=== PATIENT | female | born 1970 | race Hispanic/Latino ===

== ENCOUNTER 2018-03-16 10:14 | Emergency (ER) | payer OTHER ==
[2018-03-16] MEDS ORDERED: Ibuprofen 800 MG TAB ONE (11:16)
--- NOTE | 2018-03-16 11:32 | RAD ---
3 VIEW RIGHT SHOULDER: Date: 03/16/18 INDICATION: Fall with pain. FINDINGS: There is a surgical anchor of the humeral head. No fracture or dislocation. There is mild osteoarthri tis of the right AC joint. IMPRESSION: No acute fracture of the postoperative right shoulder. POS: [facility]
--- NOTE | 2018-03-16 11:33 | RAD ---
3 VIEW RIGHT WRIST: Date: 03/16/18 INDICATION: Injury, pain. FINDINGS: There is a minimally displaced distal radial fracture which does approximate the articular surface, a lthough there is no significant cortical step-off. There is a mildly comminuted ulnar styloid avulsio n injury. IMPRESSION: Distal radial and ulnar fractures. Telephone call findings placed to the ER physician, Francia Corado, at the time of dictation, 1118 hours on 03/16/18. CODE CR. POS: [facility]
== END 2018-03-16 11:37 | disposition home or self-care (01) ==
LOC: SCSER 10:14
DX: S52.511A Displaced fracture of right radial styloid process, initial encounter for closed fracture (principal); S52.501A Unspecified fracture of the lower end of right radius, initial encounter for closed fracture; I10 Essential (primary) hypertension; E66.9 Obesity, unspecified; F41.9 Anxiety disorder, unspecified; Z79.899 Other long term (current) drug therapy; Z79.82 Long term (current) use of aspirin; W01.0XXA Fall on same level from slipping, tripping and stumbling without subsequent striking against object, initial encounter
CPT/HCPCS: 29125

== ENCOUNTER 2018-08-13 13:33 | Emergency (ER) | payer OTHER ==
--- NOTE | 2018-08-13 14:09 | RAD ---
LEFT FOOT RADIOGRAPHS THREE VIEWS: Date: 08-13-18 Provided Clinical History: Fifth toe pain status post injury. FINDINGS: There is no evidence for fracture or other acute osseous abnormality. If there is persistent clinical concern, conservative management and follow up imaging are advised. IMPRESSION: As above. POS: [facility]
== END 2018-08-13 14:26 | disposition home or self-care (01) ==
LOC: SCSER 13:33
DX: M79.675 Pain in left toe(s) (principal); E66.9 Obesity, unspecified; I10 Essential (primary) hypertension; M06.9 Rheumatoid arthritis, unspecified; F41.9 Anxiety disorder, unspecified; Z79.891 Long term (current) use of opiate analgesic; Z79.899 Other long term (current) drug therapy; Z79.82 Long term (current) use of aspirin

== ENCOUNTER 2018-10-17 12:31 | Emergency (ER) | payer OTHER ==
[2018-10-17] MEDS ORDERED: Promethazine HCl 25 MG/ML VIAL ONE (13:21)
--- NOTE | 2018-10-17 13:29 | RAD ---
XR Chest 1 View Portable HISTORY: Syncope COMPARISON: 09/25/2012 FINDINGS: The heart size is normal. The lungs are well expanded without focal areas of consolidation, pneumothorax or pleural effusions. IMPRESSION: No radiographic evidence of acute cardiopulmonary process.
[2018-10-17 13:30] LABS: #Basophils 0.1 thou/uL (0.0-0.2); #Eosinphils 0.1 thou/uL (0.0-0.7); #Monocytes 0.4 thou/uL (0.11-0.59); #Neutrophils 6.3 thou/uL (1.40-6.50); %Basophils 0.8 % (0.0-1.0); %Eosinophils 0.7 % (0.0-10.0); %Lymphocytes 22.1 % (21.0-51.0); %Monocytes 4.5 % (0.0-10.0); %Neutrophils 71.9 % (42.0-75.0); Hemoglobin 13.6 g/dL (12.0-16.0); Mean Corpuscular HGB CONC 32.6 g/dL (32.0-36.0); Mean Corpuscular Hemoglobin 30.5 pg (27.0-31.0); Mean Corpuscular Volume 93.4 fL (78.0-98.0); Mean Platelet Volume 7.1 fL (7.4-10.4); Platelet Count 223 thou/uL (130-400); RBC Distribution Width 12.4 % (11.5-14.5); Red Blood Cell (RBC) Count 4.46 mill/uL (4.20-5.40); White Blood Cell (WBC) Count 8.8 thou/uL (4.8-10.8)
[2018-10-17 13:35] LABS: BHCG - Serum Negative (NEGATIVE); Pregs Control Background? CLEAR/WHITE (CLR/WHITE); Pregs Control Bar Appear? YES (CONTROL BAR)
[2018-10-17 13:50] LABS: Bilirubin Small (Negative); Blood, Urine Negative (Negative); Clarity CLOUDY (Clear); Glucose, Urine (Dipstick) Negative (Negative); Leukocyte Trace (Negative); Nitrite Negative (Negative); Protein, Urine (Dipstick) 100 mg/dL (Neg-Trace); Specific Gravity, Urine 1.026 (1.002-1.036)
[2018-10-17 13:52] LABS: Bacteria/HPF None Seen HPF (None Seen)
[2018-10-17 13:53] LABS: Pathc Cast-AUWi Flag 38.49 (0-2.49); Yeast-AUWi Flag 26.6 (0-25.0)
[2018-10-17 13:53] LABS: ALT (SGPT) 9 U/L (8-55); AST (SGOT) 20 U/L (5-34); Alkaline Phosphatase 65 U/L (40-150); Anion Gap 13 mmol/L (10-20); BUN (Urea Nitrogen) 23 mg/dL (7.0-18.7); Bilirubin, Total 0.6 mg/dL (0.2-1.2); CK (CPK) 131 U/L (29-168); Calc. Creatinine Clearance 0 mL/min (70-130); Calcium 9.2 mg/dL (7.8-10.44); Carbon Dioxide 26 mmol/L (22-29); Chloride 105 mmol/L (98-107); Estimated GFR-MDRD 38; Globulin 3.4 g/dL (2.4-3.5); Glucose 98 mg/dL (70-105); Potassium 3.8 mmol/L (3.5-5.1); Protein, Total 7.4 g/dL (6.0-8.3); Sodium 140 mmol/L (136-145)
[2018-10-17 13:59] LABS: RBC/HPF 0-3 HPF (0-3)
[2018-10-17 14:00] LABS: Hyaline Casts/LPF >50 HYALINE CAST LPF (0-3 Hyaline)
[2018-10-17 14:01] LABS: Other Casts/LPF 4-6 COARSE GRAN LPF (0-3 Hyaline); Yeast-All Forms None Seen HPF (None Seen)
[2018-10-17 14:02] LABS: Amphetamine Not Detected (NotDetected); Barbiturates Screen Not Detected (NotDetected); Benzodiazepine Screen Not Detected (NotDetected); Cocaine Metabolite Screen Not Detected (NotDetected); Medtox Control Line Valid? VALID (VALID); Medtox Reader # READER 4; Methadone Not Detected (NotDetected); Methamphetamine Not Detected (NotDetected); Opiate Screen Not Detected (NotDetected); Oxycodone Screen Not Detected (NotDetected); Phencyclidine (PCP) Not Detected (NotDetected); THC/Cannabinoid Screen Detected (NotDetected); Tricyclic Screen Detected (NotDetected)
--- NOTE | 2018-10-18 14:37 | EKG ---
Test Reason : SYNCOPE Blood Pressure : / mmHG Vent. Rate : 065 BPM Atrial Rate : 065 BPM P-R Int : 180 ms QRS Dur : 088 ms QT Int : 412 ms P-R-T Axes : 028 014 030 degrees QTc Int : 428 ms Normal sinus rhythm Normal ECG Confirmed by CARLOS BRYANT D.O. ([id number]), society editor MCKAY BENITEZ ([id number]) on 10/18/2018 2:37:11 PM Referred By: Confirmed By:CARLOS BRYANT D.O.
== END 2018-10-17 15:01 | disposition home or self-care (01) ==
LOC: ERS 12:31
DX: E86.0 Dehydration (principal); I10 Essential (primary) hypertension; E66.9 Obesity, unspecified; M19.90 Unspecified osteoarthritis, unspecified site; G47.30 Sleep apnea, unspecified; F41.9 Anxiety disorder, unspecified; Z79.899 Other long term (current) drug therapy
CPT/HCPCS: 36415; 71045; 80053; 80306; 81003; 81015; 82550; 84484; 84703; 85025; 93005; 96361; 96374; J2550

== ENCOUNTER 2018-11-11 12:20 | Outpatient (CLI) | payer OTHER ==
--- NOTE | 2018-11-11 12:55 | RAD ---
RIGHT SHOULDER RADIOGRAPHS 3 VIEWS: DATE: 11/11/2018. PROVIDED CLINICAL HISTORY: Shoulder pain. FINDINGS: Comparison 03/16/2018. No evidence for a fracture or other acute osseous abnormality. Postoperative changes of prior rotato r cuff repair demonstrated. The subacromial space appears preserved. Glenohumeral relationship appe ars normal. The acromioclavicular degenerative changes are again seen. IMPRESSION: Acromioclavicular osteoarthrosis. POS: [facility]
== END 2018-11-11 12:21 | disposition home or self-care (01) ==
LOC: BICRAD 12:20
PROVIDERS: ATTEND Family Medicine
DX: M75.101 Unspecified rotator cuff tear or rupture of right shoulder, not specified as traumatic (principal); M19.011 Primary osteoarthritis, right shoulder

== ENCOUNTER 2018-12-09 12:52 | Outpatient (CLI) | payer OTHER ==
--- NOTE | 2018-12-09 14:06 | MRI ---
MR of the right shoulder without contrast INDICATION: Right shoulder pain. History of fall TECHNIQUE: Sagittal T1, axial and coronal PD fat sat, sagittal and coronal T2 fat sat images were obt ained of the right shoulder. COMPARISON: MR the right shoulder dated September 26, 2012 FINDINGS: Motion artifact limits image detail. Rotator cuff: There is a recurrent full-thickness tear of the supraspinatus with retraction of the te ndon to the level of the superior humeral head. No muscular atrophy is grossly evident. There is a moderate grade intrasubstance tear of the cranial to mid subscapularis with intratendinous subluxatio n of the proximal long head of the biceps tendon. Glenohumeral joint: Articular cartilage is intact. Glenoid labrum: Intact Biceps tendon and biceps anchor: The biceps tendon is subluxed within the intratendinous delamination of the proximal and mid subscapularis tear. There is partial thickness split tear of the proximal long head of the biceps tendon . There is no overt evidence of tear extension biceps anchor. Acromion clavicular joint: There is moderate AC joint osteoarthrosis. There is postsurgical change of a prior acromioplasty and distal clavicle excision Subacromial subdeltoid space: There is moderate fluid in the subcutaneous deltoid subacromial bursa. Axillary region: No lymphadenopathy. Surrounding shoulder musculature: Normal. No evidence of atrophy or strain. IMPRESSION: 1. Recurrent full-thickness tear of the supraspinatus with retraction to the superior humeral head. 2. Moderate grade intrasubstance tear of the cranial to mid subscapularis with intratendinous subluxa tion of the long head of the biceps tendon. There is also a partial-thickness split tear of the proximal long biceps tendon. 3. Postsurgical change of a prior rotator cuff repair, acromioplasty and distal
== END 2018-12-09 12:53 | disposition home or self-care (01) ==
LOC: MRI 12:52
PROVIDERS: ATTEND Family Medicine
DX: M75.101 Unspecified rotator cuff tear or rupture of right shoulder, not specified as traumatic (principal); M75.121 Complete rotator cuff tear or rupture of right shoulder, not specified as traumatic; S46.111A Strain of muscle, fascia and tendon of long head of biceps, right arm, initial encounter; S43.081A Other subluxation of right shoulder joint, initial encounter; S46.811A Strain of other muscles, fascia and tendons at shoulder and upper arm level, right arm, initial encounter; Z98.890 Other specified postprocedural states

== ENCOUNTER 2019-03-09 09:38 | Outpatient (CLI) | payer OTHER ==
[2019-03-09 11:08] LABS: #Basophils 0.1 thou/uL (0.0-0.2); #Eosinphils 0.2 thou/uL (0.0-0.7); #Lymphocytes 2.9 thou/uL (1.20-3.40); #Monocytes 0.4 thou/uL (0.11-0.59); #Neutrophils 3.3 thou/uL (1.40-6.50); %Basophils 0.7 % (0.0-1.0); %Lymphocytes 41.7 % (21.0-51.0); %Monocytes 6.3 % (0.0-10.0); %Neutrophils 48.3 % (42.0-75.0); Hemoglobin 14.1 g/dL (12.0-16.0); Mean Corpuscular HGB CONC 32.5 g/dL (32.0-36.0); Mean Corpuscular Hemoglobin 29.6 pg (27.0-31.0); Mean Corpuscular Volume 90.9 fL (78.0-98.0); Mean Platelet Volume 6.7 fL (7.4-10.4); Platelet Count 240 thou/uL (130-400); Red Blood Cell (RBC) Count 4.76 mill/uL (4.20-5.40); White Blood Cell (WBC) Count 6.8 thou/uL (4.8-10.8)
[2019-03-09 11:15] LABS: Bacteria/HPF None Seen HPF (None Seen); Bilirubin Negative (Negative); Blood, Urine Negative (Negative); Clarity Clear (Clear); Glucose, Urine (Dipstick) Normal (Negative); Leukocyte Negative Leu/uL (Negative); Nitrite Negative (Negative); Protein, Urine (Dipstick) 10 mg/dL (Neg-Trace); RBC/HPF 0-3 HPF (0-3); Squamous Epithelial 0-3 HPF (0-3)
== END 2019-03-09 09:39 | disposition home or self-care (01) ==
LOC: LABBT 09:38
PROVIDERS: ATTEND Orthopaedic Surgery
DX: Z01.818 Encounter for other preprocedural examination (principal); S46.011A Strain of muscle(s) and tendon(s) of the rotator cuff of right shoulder, initial encounter; S46.211A Strain of muscle, fascia and tendon of other parts of biceps, right arm, initial encounter
CPT/HCPCS: 81001; 85025; 93005; 93010

== ENCOUNTER 2019-03-11 06:00 | Day surgery (SDC) | payer OTHER ==
[2019-03-09 09:56] VITALS: BMI 34.4
--- NOTE | 2019-03-10 10:01 | HP ---
HISTORY OF PRESENT ILLNESS: The patient is a 49-year-old right-hand dominant female, who underwent an open rotator cuff repair by me in 2012 with good results. Approximately one year ago, the patient fell on an outstretched hand and has had persistent pain since that time. She has pain with certain motions and also interferes with sleep. She has had persistent problems despite rest and anti- inflammatory medications. PAST MEDICAL HISTORY: As noted above. The patient also has history of rheumatoid arthritis. She has chronic back and neck problems, had been followed by Dr. Hillman with periodic injections. She has history of polycystic kidney disease, hypertension, anxiety, and migraine headaches. CURRENT MEDICATIONS: Include; 1. Flexeril. 2. Tramadol. 3. Voltaren gel. 4. Lidocaine patches. 5. Etodolac. 6. Toprol. ALLERGIES: SHE IS ALLERGIC TO MORPHINE AND CODEINE. FAMILY HISTORY: Otherwise unremarkable. SOCIAL HISTORY: Otherwise unremarkable. REVIEW OF SYSTEMS: Otherwise unremarkable. PHYSICAL EXAMINATION: GENERAL: Reveals a healthy, heavy-set female. HEENT: Unremarkable. NECK: Supple. CHEST: Clear. HEART: Regular rate and rhythm. ABDOMEN: Soft and nontender. PELVIC: Deferred. RECTAL: Deferred. BREASTS: Deferred. EXTREMITIES: Pertinent findings with the right shoulder. There is no definite atrophy. She has a healed anterolateral incision. She has 170 degrees of forward flexion. There is weakness of abduction and external rotation. There is good internal rotation strength. There is tenderness in the subacromial space. There is no instability. Neurovascular exam is intact. There is positive impingement sign. DIAGNOSTIC STUDIES: X-rays of the shoulder revealed degenerative arthritis of the AC joint and a suture anchor from previous rotator cuff repair. MRI scan of the right shoulder in December of this year reveals a recurrent full-thickness tear of the supraspinatus tendon with retraction of the superior humeral head and moderate intrasubstance tear of the subscapularis with subluxation of the long head of the biceps. IMPRESSION: Recurrent rotator cuff tear, right shoulder and subluxation of biceps tendon. PLAN: Open acromioplasty and rotator cuff repair with biceps tenodesis. The nature of the surgery, length of recovery, potential complications such as infection, loss of motion, incomplete relief, persistent weakness, recurrent tear, inability to repair the tear, and need for additional treatment and repeat surgery have been discussed in detail. Job ID: [id number] [facility]
[2019-03-11] MEDS ORDERED: Midazolam HCl 2 mg/2 ml Vial ONE ×3 (06:40→10:57)
[2019-03-11] MEDS ORDERED: Fentanyl 100 MCG/2 ML VIAL ONE ×6 (06:41→10:59)
[2019-03-11] MEDS ORDERED: Scopolamine 1.5 mg/72 hour Patch ONE (07:05)
[2019-03-11] MEDS ORDERED: Ropivacaine 0.2% 550 ML 550 ML NERVE BLCK SCH (07:21)
[2019-03-11] MEDS ORDERED: Promethazine HCl 25 MG/ML VIAL IM PRN (07:21)
[2019-03-11] MEDS ORDERED: Ondansetron PF 4 MG/2 ML Vial IVP PRN (07:21)
[2019-03-11] MEDS ORDERED: traMADol HCl 50 MG TAB PO PRN ×2 (07:21)
[2019-03-11] MEDS ORDERED: Zolpidem Tartrate 5 MG TAB PO PRN (07:21)
[2019-03-11] MEDS ORDERED: Ketorolac Tromethamine 30 MG/ML VIAL IVP PRN (07:21)
[2019-03-11] MEDS ORDERED: HYDROcodone/Acetaminophen 5/325 mg Tablet PO PRN ×2 (07:21)
[2019-03-11] MEDS ORDERED: ePHEDrine/0.9% NaCl/PF SYRINGE 50 mg/10 ml ONE (08:42)
[2019-03-11] MEDS ORDERED: Phenylephrine HCL 10 MG/ML VIAL ONE (09:01)
[2019-03-11] MEDS ORDERED: Promethazine HCl 25 MG/ML VIAL ONE (10:00)
[2019-03-11] MEDS ORDERED: PROPOFOL 20 ML ONE (11:03)
--- NOTE | 2019-03-11 12:52 | OP ---
DATE OF PROCEDURE: 03/11/2019 LAN ENGINEER: Yonathan Hyatt PA-C ANESTHESIA: General plus scalene block. PREOPERATIVE DIAGNOSIS: Recurrent rotator cuff tear and subluxation of the biceps tendon, right shoulder. POSTOPERATIVE DIAGNOSIS: Recurrent rotator cuff tear and subluxation of the biceps tendon, right shoulder. PROCEDURE PERFORMED: Open rotator cuff repair and biceps tenodesis, right shoulder. OPERATIVE FINDINGS: Examination under anesthesia showed to be stable. On exploration, there was a large irregular U-shaped recurrent tear of the rotator cuff and subluxation of the biceps tendon with tearing of the superior portion of the subscapularis. The joint appeared to be essentially normal. There was moderate tendinitis of the biceps tendon. DESCRIPTION OF PROCEDURE: After satisfactory anesthesia was induced in a semi-bueno chair position, the patient was prepped and draped in routine sterile fashion. Shoulder was approached on anterolateral incision using the previous incision centered over the anterolateral aspect of the acromion process. This was carried out to subcutaneous tissues. Bleeding points were controlled with Bovie cautery. Deltotrapezial fascia was split in L-shaped fashion with the anterior edge of the acromion and distal clavicle. There was satisfactory acromioplasty from the previous surgery. Using sharp and blunt dissection, the deltoid was reflected and the above findings were noted. The ends of the tendon were sharply debrided and freshened. The tendon was mobilized with sharp and blunt dissection. The area of the greater tuberosity was freshened with a curette and rongeur for a bleeding bony bed. The biceps tendon was identified, tagged with a suture and cut from the glenoid. The intertubercular groove was then identified. A whipstitch was placed in the biceps tendon and tenodesis of the long head of the biceps tendon was performed with a screw after drilling an appropriate hole in the bicipital groove. There appeared to be good fixation of the biceps tendon. The tear of the rotator cuff was then repaired with two convergent stitches of heavy FiberWire suture, and then, a triple-loaded anchor was then placed in the area of the greater tuberosity and the remaining portion the tear repaired with interrupted sutures, and then, this was further reinforced with a single double row technique using the SwiveLock. There appeared to be good range of motion and satisfactory clearance underneath the acromion process. The wound was thoroughly irrigated. The deltoid was repaired back to bone with interrupted #1 Ethibond sutures. The split in the deltoid was closed with 2-0 Vicryl. Subcutaneous tissue was closed with a 2-0 Vicryl and the skin closed with a staple gun. Sterile dressing was applied. The patient immobilized in an arm sling. She was awakened and taken to recovery room in stable condition. There were no apparent intraoperative complications. ESTIMATED BLOOD LOSS: Approximately 100 mL. She was taken to the recovery room in stable condition. The patient will be discharged home in satisfactory condition, instructed on ice and elevation, and given written wound care instructions. Gentle passive pendulum exercises and isometrics for biceps and triceps, but no active range of motion exercises. She was given a prescription for [place] 10 for pain 60 tablets. She will be rechecked in my office in approximately 2 weeks or sooner, if there are any problems prior to that time. Job ID: [id number]
== END 2019-03-11 13:05 | disposition home or self-care (01) ==
LOC: SDC 06:00 → EEVIPCON 09:30 → SDC 13:05
PROVIDERS: ATTEND Orthopaedic Surgery
PROC: 3E0T3BZ Introduction of Anesthetic Agent into Peripheral Nerves and Plexi, Percutaneous Approach (ICD-10-PCS; principal; 2019-03-11)
PROC: 0LQ10ZZ Repair Right Shoulder Tendon, Open Approach (ICD-10-PCS; principal; 2019-03-11)
PROC: 0LS10ZZ Reposition Right Shoulder Tendon, Open Approach (ICD-10-PCS; principal; 2019-03-11)
DX: M75.121 Complete rotator cuff tear or rupture of right shoulder, not specified as traumatic (principal); S46.111A Strain of muscle, fascia and tendon of long head of biceps, right arm, initial encounter; G89.18 Other acute postprocedural pain; M19.011 Primary osteoarthritis, right shoulder; M06.9 Rheumatoid arthritis, unspecified; G43.909 Migraine, unspecified, not intractable, without status migrainosus; I10 Essential (primary) hypertension; K21.9 Gastro-esophageal reflux disease without esophagitis; F41.9 Anxiety disorder, unspecified; Q61.3 Polycystic kidney, unspecified; Z79.82 Long term (current) use of aspirin; Z79.891 Long term (current) use of opiate analgesic; Z79.899 Other long term (current) drug therapy; Z88.5 Allergy status to narcotic agent; Z98.890 Other specified postprocedural states
CPT/HCPCS: A4306; C1713; J0690; J2250; J2370; J2550; J2704; J2795; J3010

== ENCOUNTER 2020-11-18 11:01 | Emergency (ER) | payer OTHER ==
[2020-11-18 12:30] LABS: #Basophils 0.1 thou/uL (0.0-0.2); #Eosinphils 0.1 thou/uL (0.0-0.7); #Lymphocytes 2.4 thou/uL (1.20-3.40); #Monocytes 0.3 thou/uL (0.11-0.59); #Neutrophils 7.6 thou/uL (1.40-6.50); %Basophils 0.8 % (0.0-1.0); %Eosinophils 0.7 % (0.0-10.0); %Lymphocytes 22.8 % (21.0-51.0); %Monocytes 3.3 % (0.0-10.0); %Neutrophils 72.4 % (42.0-75.0); Mean Corpuscular HGB CONC 32.5 g/dL (32.0-36.0); Mean Corpuscular Hemoglobin 27.8 pg (27.0-31.0); Mean Corpuscular Volume 85.6 fL (78.0-98.0); Mean Platelet Volume 6.6 fL (7.4-10.4); Platelet Count 273 thou/uL (130-400); Red Blood Cell (RBC) Count 5.38 mill/uL (4.20-5.40); White Blood Cell (WBC) Count 10.4 thou/uL (4.8-10.8)
[2020-11-18 12:49] LABS: ALT (SGPT) 24 U/L (8-55); AST (SGOT) 30 U/L (5-34); Albumin 4.2 g/dL (3.5-5.0); Alkaline Phosphatase 81 U/L (40-110); Anion Gap 16 mmol/L (10-20); BUN (Urea Nitrogen) 17 mg/dL (9.8-20.1); Bilirubin, Total 0.6 mg/dL (0.2-1.2); Calc. Creatinine Clearance 0 mL/min (70-130); Calcium 9.4 mg/dL (7.8-10.44); Carbon Dioxide 25 mmol/L (22-29); Chloride 104 mmol/L (98-107); Globulin 4.3 g/dL (2.4-3.5); Glucose 130 mg/dL (70-105); Potassium 3.6 mmol/L (3.5-5.1); Protein, Total 8.5 g/dL (6.0-8.3); Sodium 141 mmol/L (136-145)
[2020-11-18] MEDS ORDERED: Ondansetron PF 4 MG/2 ML Vial ONE (13:45)
[2020-11-18 14:16] LABS: Bacteria/HPF None Seen HPF (None Seen); Bilirubin Negative (Negative); Blood, Urine Trace (Negative); Clarity Turbid (Clear); Glucose, Urine (Dipstick) Normal (Negative); Ketone, Urine Negative (Negative); Leukocyte Negative Leu/uL (Negative); Nitrite Negative (Negative); Protein, Urine (Dipstick) 20 mg/dL (Neg-Trace); RBC/HPF 0-3 HPF (0-3); Specific Gravity, Urine 1.024 (1.002-1.036); Urobilinogen Normal mg/dL (Less than 2); WBC/HPF 0-3 HPF (0-3); pH, Urine 5.5 (5.0-9.0)
== END 2020-11-18 17:06 | disposition home or self-care (01) ==
LOC: ERS 11:01
DX: R19.7 Diarrhea, unspecified (principal); R11.2 Nausea with vomiting, unspecified; I10 Essential (primary) hypertension; E66.9 Obesity, unspecified
CPT/HCPCS: 80053; 81003; 81015; 84484; 85025; 87086; 93005; 96374; J2405

== ENCOUNTER 2021-08-04 10:14 | Emergency (ER) | payer OTHER ==
[2021-08-04 11:23] LABS: #Basophils 0.1 thou/uL (0.0-0.2); #Eosinphils 0.1 thou/uL (0.0-0.7); #Lymphocytes 2.3 thou/uL (1.20-3.40); #Monocytes 0.4 thou/uL (0.11-0.59); #Neutrophils 4.8 thou/uL (1.40-6.50); %Basophils 0.7 % (0.0-1.0); %Eosinophils 1.9 % (0.0-10.0); %Lymphocytes 29.3 % (21.0-51.0); %Monocytes 5.6 % (0.0-10.0); %Neutrophils 62.5 % (42.0-75.0); Hemoglobin 13.4 g/dL (12.0-16.0); Mean Corpuscular HGB CONC 32.6 g/dL (32.0-36.0); Mean Corpuscular Hemoglobin 29.1 pg (27.0-31.0); Mean Corpuscular Volume 89.5 fL (78.0-98.0); Mean Platelet Volume 6.4 fL (7.4-10.4); Platelet Count 239 thou/uL (130-400); RBC Distribution Width 12.3 % (11.5-14.5); White Blood Cell (WBC) Count 7.7 thou/uL (4.8-10.8)
[2021-08-04] MEDS ORDERED: Iopamidol-370 76% 500 ML 1 ML ONE (11:29)
[2021-08-04 11:45] LABS: ALT (SGPT) 9 U/L (8-55); AST (SGOT) 15 U/L (5-34); Albumin 3.8 g/dL (3.5-5.0); Alkaline Phosphatase 61 U/L (40-110); Anion Gap 12 mmol/L (10-20); BUN (Urea Nitrogen) 18 mg/dL (9.8-20.1); Bilirubin, Total 0.8 mg/dL (0.2-1.2); Calc. Creatinine Clearance 0 mL/min (70-130); Calcium 8.7 mg/dL (7.8-10.44); Carbon Dioxide 26 mmol/L (22-29); Chloride 103 mmol/L (98-107); Globulin 3.6 g/dL (2.4-3.5); Glucose 91 mg/dL (70-105); Protein, Total 7.4 g/dL (6.0-8.3); Sodium 137 mmol/L (136-145)
[2021-08-04 11:54] LABS: Bacteria/HPF None Seen HPF (None Seen); Bilirubin Negative (Negative); Blood, Urine 1+ (Negative); Clarity Clear (Clear); Glucose, Urine (Dipstick) Normal (Negative); Ketone, Urine Negative (Negative); Leukocyte Negative Leu/uL (Negative); Nitrite Negative (Negative); Protein, Urine (Dipstick) Negative (Neg-Trace); RBC/HPF 0-3 HPF (0-3); Specific Gravity, Urine 1.025 (1.002-1.036); Squamous Epithelial 0-3 HPF (0-3); Urobilinogen Normal mg/dL (Less than 2); WBC/HPF 0-3 HPF (0-3); pH, Urine 5.5 (5.0-9.0)
[2021-08-04 12:36] LABS: BHCG - Serum Negative (NEGATIVE); Pregs Control Background? CLEAR/WHITE (CLR/WHITE); Pregs Control Bar Appear? YES (CONTROL BAR)
== END 2021-08-04 13:57 | disposition home or self-care (01) ==
LOC: ERS 10:14
DX: R10.11 Right upper quadrant pain (principal); I10 Essential (primary) hypertension; E66.9 Obesity, unspecified; M19.90 Unspecified osteoarthritis, unspecified site; M06.9 Rheumatoid arthritis, unspecified; G47.30 Sleep apnea, unspecified
CPT/HCPCS: 36415; 74177; 80053; 81003; 81015; 83690; 84484; 84703; 85025; 93005; Q9967